=== PATIENT | male | born 1995 | race African-American/Black ===

== ENCOUNTER 2021-08-11 12:38 | Emergency (ER) | payer OTHER, SELFPAY ==
--- NOTE | 2021-08-11 12:47 | ED.SKABFB ---
HPI - Skin/Abscess/Foreign Bdy General Chief complaint: Skin/Abscess/Foreign Body Stated complaint: extreme chapped lips Time Seen by Provider: 08/11/21 13:19 Source: patient and RN notes reviewed Mode of arrival: ambulatory Limitations: no limitations History of Present Illness HPI narrative: 26-year-old male presents with concern for pain, cracking at the corners of his mouth for 1 and half weeks. He reports over the last 2 days he has had some swelling and cracking to the upper middle lip. He denies any history of similar illness. He denies any cold sores, upper respiratory symptoms. Reports has been using Aquaphor and Vaseline without relief. complaint: other (Lip cracking) Related Data Allergies Allergy/AdvReac Type Severity Reaction Status Date / Time No Known Allergies Allergy Verified 08/11/21 12:55 Review of Systems Review of Systems: CONSTITUTIONAL: Denies malaise, chills, sweats, or fever. EYES: Denies redness, or discharge. ENT: Denies rhinorrhea, congestion, swollen tongue CARDIOVASCULAR: Denies chest pain, palpitations, or edema. RESPIRATORY: Denies cough or dyspnea. GASTROINTESTINAL: Denies abdominal pain, nausea, vomiting SKIN: Reports cracking to both corners of the mouth, cracking and swelling to the top upper lip MUSCULOSKELETAL: Denies joint painor myalgia. NEUROLOGIC: Denies headache. All systems reviewed & are unremarkable except as noted in HPI and below PMFSH Comments At time of signature, agree with nursing past medical, surgical, social and family history. There is no relevant family history pertinent to the presenting complaint Exam Narrative: GENERAL: Well-appearing, well-nourished, and in no acute distress. HEAD: Normocephalic, atraumatic. EYES: PERRLA, conjunctivae clear, and EOMI. ENT: Mucous membranes moist. Oropharynx without edema, erythema or lesions. NECK: Supple. No lymphadenopathy CHEST: Clear to auscultation. No respiratory distress. HEART: Regular rate and rhythm. SKIN: Warm, dry. Erythema, fissures noted to both corners of the mouth with slight yellow crusting. NEURO: Alert and oriented x3. PSYCH: Normal mood and affect Course Course Emergency Course: Patient is aware of diagnosis, understands and agrees to treatment plan. Anticipatory guidance given. Patient agrees to follow-up as directed and is aware of reasons to seek care at the emergency department. Portions of this record may have been created with voice recognition software Level of Care: Express Care Visit Vital Signs Vital signs: Vital Signs Temperature 98.7 F 08/11/21 12:50 Pulse Rate 81 08/11/21 12:50 Respiratory Rate 16 08/11/21 12:50 Blood Pressure 141/78 H 08/11/21 12:50 Pulse Oximetry 98 08/11/21 12:50 Oxygen Delivery Room Air 08/11/21 12:50 Temperature 98.7 F 08/11/21 12:50 Pulse Rate 81 08/11/21 12:50 Respiratory Rate 16 08/11/21 12:50 Blood Pressure 141/78 H 08/11/21 12:50 Pulse Oximetry 98 08/11/21 12:50 Oxygen Delivery Room Air 08/11/21 12:50 Reviewed. MDM - Skin/Abscess/Foreign Bdy MDM Narrative Medical decision making narrative: Exam findings show no acute concerns or changes; patient is non-toxic appearing and is in no distress. Patient is appropriate for outpatient treatment and follow-up. Critical Care Time Critical Care Time Critical Care Time: No Discharge Plan Discharge Clinical Impression: Angular cheilitis Patient Disposition: Home, Self-Care Condition: Stable Instructions: General Patient Instructions Additional Instructions: Apply prescribed cream 2-3 times daily to the corners of the mouth into the lips if they are infected. You need to use a screen for a minimum of 2 weeks, you may need to use it for up to 4 weeks. If you have any further symptoms please follow-up with your primary care doctor. If you have any urgent concerns please go the emergency room. Prescriptions: New clotrimazole-betamethasone 1-
[2021-08-11 12:50] VITALS: BP 141/78; PULSE 81; RESP 16; TEMP 37.1; O2SAT 98
== END 2021-08-11 13:30 | disposition home or self-care (01) ==
PROVIDERS: Emergency Provider Nurse Practitioner
DX: K13.0 Diseases of lips (principal)
CPT/HCPCS: 99203; G0463